=== PATIENT | male | born 1940 | race Caucasian/White ===

== ENCOUNTER 2023-08-27 08:20 | Emergency (ER) | payer MEDICARE, OTHER, SELFPAY ==
[2023-08-27 08:30] VITALS: BP 125/76
[2023-08-27 08:33] VITALS: BP 125/76
--- NOTE | 2023-08-27 08:36 | ED.GENMED ---
History of Present Illness
General
Chief Complaint: Abdominal Symptoms
Source: patient, spouse and ambulance crew
Exam Limitations: none
Time Seen by Provider: 08/27/23 08:23
Nursing documentation reviewed up to this point in time: agreed with
Travel History
Have you had any contact with someone who has COVID-19?: No
Do you have any symptoms of coronavirus? Fever > 100 degrees, chills, cough, shortness of breath, sore throat, loss of taste or smell, muscle aches, or headache?: No
History of Present Illness
History of Present Illness:
The patient is a pleasant 83-year-old man who arrives from [facility]. His reports that he has had liquidy nonbloody diarrhea since this past Wednesday, which was 4 days ago. Patient complains of very mild cramping in his left lower abdomen.
reports he has not had any vomiting and has been able to eat but has had a slightly decreased appetite. He has had no fever. The reports that she had similar symptoms, including watery diarrhea for 4 days, last week and she now feels
better. His reports he has not had any antibiotics recently nor any hospitalizations
Past History
Past History
ED Past Medical History: CAD, HTN and Other (Dementia, hydrocephalus)
ED Past Surgical History: Brain (ADMISSIONS REPRESENTATIVE shunt) and Cardiac
Social History
Tobacco: Non-smoker
Alcohol: None
Drug: None
Personal:
Living: with family
Employment: Retired
Family History
Family History: Other
Review of Systems
Review of Systems
Allergies reviewed?: Yes
Other source history: family
All Other Systems: ROS reviewed and negative except as documented in HPI and ROS
Constitutional: Reports no symptoms
EENT: Reports no symptoms
Respiratory: Reports no symptoms
Cardiac: Reports no symptoms
ABD/GI: Reports abdominal pain, diarrhea and anorexia
: Reports no symptoms
Musculoskeletal: Reports no symptoms
Skin: Reports no symptoms
Neurological: Reports no symptoms
Endocrine: Reports no symptoms
Hematologic/Lymphatic: Reports no symptoms
Psychiatric: Reports no symptoms
Phy Exam
Physical Exam
Physical Exam:
Physical Exam
General: no apparent distress, not acutely ill
Neck: supple. no meningeal signs. normal psoterior pharynx
Heart: s1/s2 regular rate and rhythm
Lungs: no acute respiratory distress. clear bilaterally
Abdomen: Mildly distended. Soft throughout. Mild left lower quadrant tenderness. No rebound or guarding. No pulsatile mass
Neuro: alert and oriented. no focal neurological deficits
Skin: no rash
Psychiatric: well kept. interactive and cooperative
Extremities: no edema. no calf tenderness. negative homans. good distal pulses
Course
Orders/Labs/Results
Orders:
Orders
08/27/23 08:50
CMP [Comprehensive Metabolic Panel] Urgent
Complete Blood Count/With Diff Urgent
Lipase Urgent
08/27/23 09:46
CT Abd/pelvis W Iv Cont Urgent
Comment:
Reason For Exam: LLQ pain, diarrhea
Abnormal Lab Results
08/27/23
08:50
MCH 32.0 H pg
(27.0-31.0)
Absolute Lymphs (auto) 0.5 L 10^3/uL
(1.2-3.4)
Neutrophils % 83.5 H %
(42.2-75.2)
Lymphocytes % 7.7 L %
(20.5-51.1)
Chloride 111 H mmol/L
(98-107)
Total Protein 5.9 L g/dl
(6.3-8.2)
08/27/23 08:50
08/27/23 08:50
Vital Signs
Initial and Last Documented VS:
Initial Vital Signs
Temp
98.3 F
08/27/23 08:25
Last Documented Vital Signs
Temp Pulse Resp BP Pulse Ox
98.3 F 70 23 151/79 99
08/27/23 08:25 08/27/23 11:45 08/27/23 11:45 08/27/23 11:01 08/27/23 11:45
MDM/Problems Addressed
Differential Diagnosis Includes:
Viral gastroenteritis, acute colitis, acute diverticulitis
MDM/Problems Addressed:
Patient presents with acute diarrhea
Chronic conditions affecting care: CAD
Acute Exacerbation and/or Progression of Chronic Illness: HTN
*Radiology
Radiology exam reviewed: radiology read reviewed
*Pulse Oximetry
Patient hypoxic: no
*EKG
Interpreted by ED Provider?: NA
*Third Cook Interpretation
Rate: normal
Interpretation: normal
Rhythm: sinus
*Critical Care Note
Total Time (30-74mins, 75-104mins- exclusive of procedures): Not Applicable
Data Reviewed
Review of Other/Old Records Reveals: Testing (Cardiac echo reviewed from 01/19/2023 which shows an EF of 55 to 60%)
Source: patient and spouse
Prescriptions/Medications Considered But Not Given:
Patient given IV fluids to hydrate him.
Patient Management
Social determinants of health affecting care: Living situation and Strong social support
Escalation/DeEscalation of care consider admission/obs:
Patient remains well-appearing. He has had no nausea, vomiting or any diarrhea in the emergency department. He is able to drink fluids. His is at the bedside and is comfortable taking him home. Patient will be continued on Imodium and brat
diet. I suspect this is a viral enteritis.
ED Attending Note
-
Portions of this chart may have been created with voice recognition software.� Occasional wrong word or��sound alike� substitutions may have occurred due to the inherent limitations of voice recognition software.
Discharge Plan
Departure
Patient Disposition: Home (Routine Discharge)
Date of Disposition: 08/27/23
Time of Disposition: 11:37
Patient with high blood pressure during this ER visit?: Yes
Condition: Good
Covid-19: Not Applicable
Discharge Problem:
Acute diarrhea
Instructions: Diarrhea in adolescents and adults, [place] Diet
Prescriptions:
No Action
aspirin 81 MG tablet,delayed release (DR/EC)
81 mg PO DAILY
Aleve
PRN
Patient Comments:
been taking for past few weeks as needed
simvastatin 40 MG tablet
40 mg PO QPM
metoprolol tartrate 50 MG tablet
50 mg PO DAILY
metoprolol tartrate 25 MG tablet
25 mg PO QPM
Lisinopril
10 mg PO DAILY
Lutein
PO
Patient Comments:
2 caps daily
Multivitamin
DAILY
Patient Comments:
centrum silver
Tylenol Extra Strength
PRN
Patient Comments:
has been taking few times daily off and on for past few weeks for back pain
Referrals:
MastersSamira MD [Family Provider] -
Activity Restrictions/Additional Instructions:
Take 2 tablets of Imodium every 8 hours as needed for diarrhea.
Interventions
Interventions:
*Risk Screen - Suicide Last Done: 08/27/23 08:25
*General Assessment Last Done: 08/27/23 08:25
*Neglect/Abuse Screening Last Done: 08/27/23 08:25
ED- Fall Risk Assessment Last Done: 08/27/23 08:25
*ED COVID-19 Vaccine History Last Done: 08/27/23 10:43
*Nursing Disposition Last Done: 08/27/23 12:07
TW-Pedioj-Owbfzbqyms Assessment Last Done: 08/27/23 10:43
Discharge Date and Time
Discharge Date/Time: 08/27/23 12:08
[2023-08-27 09:06] LABS: % Basophils 0.4 % (0-2); % Eosinophils 2.9 % (0-6); % Immature Granulocytes 0.3 % (0-0.5); % Lymphocytes 7.7 % (20.5-51.1); % Monocytes 5.2 % (1.7-9.3); % Neutrophils 83.5 % (42.2-75.2); Absolute Eosinophils 0.2 10^3/uL (0-0.7); Absolute Lymphocytes 0.5 10^3/uL (1.2-3.4); Absolute Monocytes 0.4 10^3/uL (0.1-0.6); Absolute Neutrophils 5.7 10^3/uL (1.4-6.5); Hematocrit 48.6 % (39.0-52.0); Hemoglobin 16.8 g/dL (13.0-18.0); Mean Corp Hgb Conc. 34.6 g/dL (33.0-37.0); Mean Corpuscular Volume 92.6 fL (80.0-94.0); Mean Platelet Volume 10.3 fL (7.4-10.4); Nucleated Red Blood Cells % 0 % (-); Platelet Count 136 10^3/uL (130-400); Red Blood Cell Count 5.25 10^6/uL (4.70-6.10); Red Cell Dist. Width 13.4 % (11.5-14.5); White Blood Cell Count 6.9 10^3/uL (4.8-10.8)
[2023-08-27 09:10] LABS: ALT (SGPT) 25 U/L (0-50); AST (SGOT) 23 U/L (17-59); Albumin 3.6 g/dl (3.5-5.0); Alkaline Phosphatase 78 U/L (38-126); Blood Urea Nitrogen 15 mg/dl (9-20); Calcium 9.2 mg/dl (8.4-10.2); Carbon Dioxide 23 mmol/L (22-30); Chloride 111 mmol/L (98-107); Estimated Creatinine Clearance 59 ml/min; Glucose 98 mg/dl (70-99); Lipase 59 U/L (23-300); Potassium 3.7 mmol/L (3.5-5.1); Sodium 139 mmol/L (135-145); Total Bilirubin 1.1 mg/dl (0.2-1.3); Total Protein 5.9 g/dl (6.3-8.2); eGFR > 60.00
[2023-08-27 10:44] VITALS: BP 122/103
[2023-08-27 11:01] VITALS: BP 151/79
== END 2023-08-27 12:08 | disposition home or self-care (01) ==
LOC: EMR 08:20
PROVIDERS: EMERGENCY PHYSICIAN Emergency Medicine; FAMILY PHYSICIAN Internal Medicine
DX: A08.4 Viral intestinal infection, unspecified (principal); R10.9 Unspecified abdominal pain; F03.90 Unspecified dementia, unspecified severity, without behavioral disturbance, psychotic disturbance, mood disturbance, and anxiety; I10 Essential (primary) hypertension; G91.9 Hydrocephalus, unspecified; Z98.2 Presence of cerebrospinal fluid drainage device; I25.10 Atherosclerotic heart disease of native coronary artery without angina pectoris
CPT/HCPCS: 99285; 74177; 80053; 83690; 85025; Q9967

== ENCOUNTER → 2024-01-24 10:12 | Outpatient (REF) | payer MEDICARE, OTHER, SELFPAY ==
[2024-01-24 11:19] LABS: Hemoglobin 16.9 g/dL (13.0-18.0); Mean Corp Hgb Conc. 33.8 g/dL (33.0-37.0); Mean Corpuscular Hgb 32.6 pg (27.0-31.0); Mean Corpuscular Volume 96.5 fL (80.0-94.0); Mean Platelet Volume 10.8 fL (7.4-10.4); Platelet Count 145 10^3/uL (130-400); Red Blood Cell Count 5.18 10^6/uL (4.70-6.10); Red Cell Dist. Width 13.5 % (11.5-14.5); White Blood Cell Count 5.5 10^3/uL (4.8-10.8)
[2024-01-24 11:38] LABS: ALT (SGPT) 21 U/L (0-50); AST (SGOT) 23 U/L (17-59); Albumin 3.7 g/dl (3.5-5.0); Alkaline Phosphatase 81 U/L (38-126); Blood Urea Nitrogen 17 mg/dl (9-20); Calcium 9.7 mg/dl (8.4-10.2); Carbon Dioxide 29 mmol/L (22-30); Chloride 105 mmol/L (98-107); Glucose 90 mg/dl (70-99); HDL Cholesterol 41 mg/dl; LDL Cholesterol, Calculated 63 mg/dl; Potassium 3.9 mmol/L (3.5-5.1); Sodium 141 mmol/L (135-145); Total Bilirubin 1.1 mg/dl (0.2-1.3); Total Cholesterol 121 mg/dl (50-199); Triglyceride 87 mg/dl (10-149); Very Low Density Lipoprotein 17 mg/dl (0-30); eGFR > 60.00
[2024-01-24 12:00] LABS: TSH Reflex To Free T4 1.97 uIU/ml (0.47-4.68)
== END ==
LOC: OLABP 10:12
PROVIDERS: ATTENDING PHYSICIAN Family Medicine
DX: I11.9 Hypertensive heart disease without heart failure (principal); G91.2 (Idiopathic) normal pressure hydrocephalus; I48.0 Paroxysmal atrial fibrillation; Z95.810 Presence of automatic (implantable) cardiac defibrillator; E78.5 Hyperlipidemia, unspecified; R73.9 Hyperglycemia, unspecified; F02.B4 Dementia in other diseases classified elsewhere, moderate, with anxiety; R19.7 Diarrhea, unspecified; R26.2 Difficulty in walking, not elsewhere classified; N40.1 Benign prostatic hyperplasia with lower urinary tract symptoms
CPT/HCPCS: 36415; 80053; 80061; 84443; 85027

== ENCOUNTER → 2024-06-08 10:45 | Outpatient (REF) | payer MEDICARE, OTHER, SELFPAY ==
[2024-06-08 11:16] LABS: ALT (SGPT) 23 U/L (0-50); AST (SGOT) 23 U/L (17-59); Albumin 3.1 g/dl (3.5-5.0); Alkaline Phosphatase 99 U/L (38-126); Blood Urea Nitrogen 26 mg/dl (9-20); Calcium 8.9 mg/dl (8.4-10.2); Carbon Dioxide 25 mmol/L (22-30); Chloride 107 mmol/L (98-107); Glucose 86 mg/dl (70-99); Potassium 3.9 mmol/L (3.5-5.1); Sodium 142 mmol/L (135-145); Total Bilirubin 0.5 mg/dl (0.2-1.3); Total Protein 5.3 g/dl (6.3-8.2); eGFR > 60.00
[2024-06-08 11:22] LABS: % Basophils 0.6 % (0-2); % Eosinophils 2.6 % (0-6); % Immature Granulocytes 0.4 % (0-0.5); % Lymphocytes 21.1 % (20.5-51.1); % Monocytes 7.1 % (1.7-9.3); % Neutrophils 68.2 % (42.2-75.2); Absolute Eosinophils 0.1 10^3/uL (0-0.7); Absolute Monocytes 0.4 10^3/uL (0.1-0.6); Absolute Neutrophils 3.4 10^3/uL (1.4-6.5); Hematocrit 44.3 % (39.0-52.0); Hemoglobin 15.1 g/dL (13.0-18.0); Mean Corp Hgb Conc. 34.1 g/dL (33.0-37.0); Mean Corpuscular Hgb 32.5 pg (27.0-31.0); Mean Corpuscular Volume 95.3 fL (80.0-94.0); Mean Platelet Volume 10.7 fL (7.4-10.4); Nucleated Red Blood Cells % 0 % (-); Platelet Count 140 10^3/uL (130-400); Red Blood Cell Count 4.65 10^6/uL (4.70-6.10); Red Cell Dist. Width 13.1 % (11.5-14.5); White Blood Cell Count 4.9 10^3/uL (4.8-10.8)
== END ==
LOC: OLABP 10:45
PROVIDERS: ATTENDING PHYSICIAN Family Medicine
DX: I11.9 Hypertensive heart disease without heart failure (principal); G91.2 (Idiopathic) normal pressure hydrocephalus; I48.0 Paroxysmal atrial fibrillation; Z95.810 Presence of automatic (implantable) cardiac defibrillator; E78.5 Hyperlipidemia, unspecified; R73.9 Hyperglycemia, unspecified; N40.1 Benign prostatic hyperplasia with lower urinary tract symptoms; R19.7 Diarrhea, unspecified; F02.B4 Dementia in other diseases classified elsewhere, moderate, with anxiety; I25.10 Atherosclerotic heart disease of native coronary artery without angina pectoris; R26.2 Difficulty in walking, not elsewhere classified
CPT/HCPCS: 36415; 80053; 85025